=== PATIENT | male | born 1990 | race African-American/Black ===

== ENCOUNTER 2016-08-29 04:20 | Outpatient (CLI) | payer MEDICAID | END 2016-08-29 04:21 | disposition critical access hospital (66) | LOC: EMS 04:20 | PROVIDERS: ATTEND Surgery | DX: R56.9 Unspecified convulsions (principal) | CPT/HCPCS: A0425; A0429 ==

== ENCOUNTER 2016-08-29 04:36 | Emergency (ER) | payer MEDICAID ==
--- NOTE | 2016-08-29 04:49 | ED Physician Documentation ---
PD HPI SEIZURE - Stated complaint Stated Complaint: SEIZURE - Chief complaint Chief Complaint: Neuro - History obtained from History obtained from: Patient, Family (his mother), EMS - History of Present Illness Timing - onset: How many minutes ago (30) Witnessed: Witnessed Number of seizures: Single, Lasted - seconds (about 30-45, per mom) Description of seizure activity: Generalized Injury during seizure: Other (small laceration left lower lip) Associated symptoms: No: Headache, Chest pain, Nausea / vomiting History of seizures: No: First seizure (he has had 2 prior seizures, about a year apart, without prior testing nor medications. He takes Adderall for ADHD and has been on same med/dose for awhile. No new medications, recent illness, drug use, dehydration, nor alcohol use.) Contributing factors: No: Changed meds, Head injury, Fever, Sleep deprivation Similar symptoms before: No diagnosis Recently seen: Not recently seen Review of Systems Constitutional: denies: Fever, Chills Nose: denies: Rhinorrhea / runny nose, Congestion Throat: denies: Sore throat Cardiac: denies: Chest pain / pressure Respiratory: denies: Cough GI: denies: Abdominal Pain, Nausea, Vomiting, Diarrhea Skin: denies: Rash, Lesions Musculoskeletal: denies: Neck pain, Back pain Neurologic: denies: Focal weakness, Numbness, Altered mental status, Headache, Head injury Psychiatric: reports: Depressed. denies: Suicidal Endocrine: denies: Weight loss Immunocompromised: denies: Immunocompromised PD PAST MEDICAL HISTORY - Past Medical History Past Medical History: Yes Cardiovascular: None Respiratory: None Neuro: None, Seizure disorder (2 prior seizures over past 1 1/2 - 2 years, without specific diagnosis nor medications. ) Endocrine/Autoimmune: None Psych: ADD/ADHD - Past Surgical History Past Surgical History: Yes HEENT: Tonsil/Adenoidectomy - Present Medications Home Medications: Ambulatory Orders Medication Instructions Recorded Confirmed Dextroamphetamine/Amphetamine 10 mg PO DAILY 08/29/16 08/29/16 [Adderall 10 mg Tablet] - Allergies Allergies/Adverse Reactions: Allergies Allergy/AdvReac Type Severity Reaction Status Date / Time No Known Drug Allergies Allergy Verified 08/29/16 04:40 - Social History Does the pt smoke?: No Smoking Status: Never smoker Does the pt drink ETOH?: No Does the pt have substance abuse?: No - Immunizations Immunizations are current?: No Immunizations: TDAP >10years/unknown - POLST Patient has POLST: No PD ED PE NORMAL - Vitals Vital signs reviewed: Yes - General General: Alert and oriented X 3, No acute distress, Well developed/nourished - HEENT HEENT: PERRL, Ears normal, Pharynx benign, Other (left lower lip with small laceration. Tongue without lesions. Chin with mild swelling. No scalp tenderness. 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, No motor deficit, No sensory deficit, Normal speech, Other - Psych Psych: Normal mood, Normal affect Results - Vitals Vitals: Vital Signs - 24 hr 08/29/16 08/29/16 08/29/16 04:39 04:58 05:52 Temperature 36.5 C Heart Rate 105 H 99 101 H Respiratory 18 12 12 Rate Blood Pressure 130/62 109/61 116/62 O2 Saturation 96 98 100 08/29/16 05:53 Temperature 36.9 C Heart Rate 101 H Respiratory 15 Rate Blood Pressure 111/62 O2 Saturation 100 Oxygen O2 Source Room air - Labs Labs: Laboratory Tests 08/29/16 08/29/16 08/29/16 04:52 04:52 04:52 WBC 10.0 RBC 4.81 Hgb 13.1 L Hct 39.3 L MCV 81.7 MCH 27.1 MCHC 33.2 RDW 14.7 Plt Count 229 MPV 9.1 Neut # 6.3 Lymph # 2.5 Emery # 0.8 Eos # 0.3 Baso # 0.2 H Absolute Nucleated RBC 0.00 Nucleated RBCs 0.0 Sodium 140 Potassium 4.1 Chloride 104 Carbon Dioxide 25 Anion Gap 11.0 BUN 18 Creatinine 1.1 Estimated GFR (MDRD) 100 Glucose 102 H Calcium 9.2 Magnesium 1.9 Total Bilirubin < 0.2 L AST 25 ALT 25 Alkaline Phosphatase 69 Total Protein 7.3 Albumin 4.2 Globulin 3.1 Albumin/Globulin Ratio 1.4 Lipase 19 L TSH 1.41 Urine Color Urine Clarity Urine pH Ur Specific [place] Urine Protein Urine Glucose (UA) Urine Ketones Urine Occult Blood Urine Nitrite Urine Bilirubin Urine Urobilinogen Ur Leukocyte Esterase Urine RBC Urine WBC Ur Squamous Epith Cells Urine Bacteria Urine Casts Urine Mucus Ur Microscopic Review Urine Culture Comments Urine Opiates Screen Ur Oxycodone Screen Urine Methadone Screen Ur Propoxyphene Screen Ur Barbiturates Screen Ur Tricyclics Screen Ur Phencyclidine Scrn Ur Amphetamine Screen U Methamphetamines Scrn U Benzodiazepines Scrn Urine Cocaine Screen U Cannabinoids Screen 08/29/16 05:08 WBC RBC Hgb Hct MCV MCH MCHC RDW Plt Count MPV Neut # Lymph # Emery # Eos # Baso # Absolute Nucleated RBC Nucleated RBCs Sodium Potassium Chloride Carbon Dioxide Anion Gap BUN Creatinine Estimated GFR (MDRD) Glucose Calcium Magnesium Total Bilirubin AST ALT Alkaline Phosphatase Total Protein Albumin Globulin Albumin/Globulin Ratio Lipase TSH Urine Color YELLOW Urine Clarity CLEAR Urine pH 6.0 Ur Specific [place] >=1.030 H Urine Protein 100 H Urine Glucose (UA) NEGATIVE Urine Ketones NEGATIVE Urine Occult Blood TRACE-LYSE Urine Nitrite NEGATIVE Urine Bilirubin NEGATIVE Urine Urobilinogen 0.2 (NORMAL) Ur Leukocyte Esterase NEGATIVE Urine RBC 0-5 Urine WBC 0-3 Ur Squamous Epith Cells NONE SEEN Urine Bacteria None Seen Urine Casts 3-5 Hyaline Casts Urine Mucus Few Strands Ur Microscopic Review INDICATED Urine Culture Comments NOT INDICATED Urine Opiates Screen NEGATIVE Ur Oxycodone Screen NEGATIVE Urine Methadone Screen NEGATIVE Ur Propoxyphene Screen NEGATIVE Ur Barbiturates Screen NEGATIVE Ur Tricyclics Screen NEGATIVE Ur Phencyclidine Scrn NEGATIVE Ur Amphetamine Screen POSITIVE H U Methamphetamines Scrn NEGATIVE U Benzodiazepines Scrn NEGATIVE Urine Cocaine Screen NEGATIVE U Cannabinoids Screen NEGATIVE PD MEDICAL DECISION MAKING - ED course Complexity details: reviewed results, considered differential, d/w patient Departure - Departure Disposition: 01 Home, Self Care Clinical Impression: Seizures, generalized convulsive Condition: Stable Record reviewed to determine appropriate education?: Yes Instructions: ED Seizure New Onset Unk Cause Follow-Up: [facility] [Provider Group] Comments: Drink lots of fluids. Tylenol every 4 hours if needed for pains. Follow up with yur PCP in Clinic today as planned. Return if recurrent seizures in the next few days. Your primary care provider with presumedly set you up with outpatient tests of EEG and possibly MRI, and likely referral to Neurologist. Whether to start anti-seizure medications would be a discussion over how often they occur versus potential side-effects and problem of daily medications.
[2016-08-29 05:08] LABS: BASOPHILS # (AUTO) 0.2 10^3/uL (0.0-0.1); BASOPHILS % (AUTO) 1.5 %; EOSINOPHILS # (AUTO) 0.3 10^3/uL (0.0-0.7); EOSINOPHILS % (AUTO) 2.5 %; HCT - HEMATOCRIT 39.3 % (42.0-52.0); HGB - HEMOGLOBIN 13.1 g/dL (14.0-18.0); LYMPHOCYTES # (AUTO) 2.5 10^3/uL (1.5-3.5); LYMPHOCYTES % (AUTO) 24.8 %; MEAN CORPUSCULAR HEMOGLOBIN 27.1 pg (27.0-31.0); MEAN CORPUSCULAR HGB CONC 33.2 g/dL (32.0-36.0); MEAN CORPUSCULAR VOLUME 81.7 fL (80.0-94.0); MEAN PLATELET VOLUME 9.1 fL (7.4-11.4); MONOCYTES # (AUTO) 0.8 10^3/uL (0.0-1.0); MONOCYTES % (AUTO) 8.2 %; NEUTROPHILS # (AUTO) 6.3 10^3/uL (1.5-6.6); RED BLOOD COUNT 4.81 10^6/uL (4.70-6.10); RED CELL DISTRIBUTION WIDTH 14.7 % (12.0-15.0)
[2016-08-29 05:18] LABS: ALBUMIN/GLOBULIN RATIO 1.4 (1.0-2.2); BILIRUBIN,TOTAL < 0.2 mg/dL (0.2-1.0); BUN - BLOOD UREA NITROGEN 18 mg/dL (6-20); CALCIUM 9.2 mg/dL (8.5-10.3); CARBON DIOXIDE - CO2 25 mmol/L (21-32); CHLORIDE 104 mmol/L (101-111); CREATININE 1.1 mg/dL (0.6-1.2); GFR - MDRD 100 (>89); GLUCOSE 102 mg/dL (70-100); LIPASE 19 U/L (22-51); MAGNESIUM 1.9 mg/dL (1.7-2.8); POTASSIUM 4.1 mmol/L (3.5-5.0); SODIUM 140 mmol/L (135-145); TOTAL PROTEIN 7.3 g/dL (6.7-8.2)
[2016-08-29 05:24] LABS: BILIRUBIN,URINE NEGATIVE (NEGATIVE)
[2016-08-29 05:25] LABS: UA w/ MICROSCOPIC CHARGE YES
[2016-08-29 05:32] LABS: UR CULTURE IF IND NOT INDICATED; WBC,URINE 0-3 /HPF (0-3)
[2016-08-29 05:55] VITALS: BP 111/62
== END 2016-08-29 06:07 | disposition home or self-care (01) ==
LOC: EDUNIT# → ED 04:36
DX: R56.9 Unspecified convulsions (principal)
CPT/HCPCS: 36415; 80053; 80306; 81001; 81003; 83690; 83735; 84443; 85025; 87086; 99283; 99284

== ENCOUNTER 2021-06-29 10:19 | Outpatient (CLI) | payer BC, MEDICAID ==
--- NOTE | 2021-06-29 11:45 | XRAY Report ---
PROCEDURE: Thoracic Spine 2 View INDICATIONS: ACUTE THORACIC BACK PAIN TECHNIQUE: 2 views of the thoracic spine were acquired. COMPARISON: None. FINDINGS: Bones: No fractures or dislocations. No suspicious bony lesions. 12 pairs of ribs are noted, and a ppear intact where visualized. Convex right thoracolumbar scoliosis present. Soft tissues: No paravertebral stripe thickening. IMPRESSION: Mild thoracolumbar dextroscoliosis Reviewed by: Vin Light MD on 06/29/2021 10:43 AM KHUSHI Approved by: Vin Light MD on 06/29/2021 10:43 AM KHUSHI Station ID: [id number]
== END 2021-06-29 23:59 | disposition home or self-care (01) ==
LOC: DI.N 10:19
PROVIDERS: ATTEND Nurse Practitioner
DX: M54.6 Pain in thoracic spine (principal); M41.84 Other forms of scoliosis, thoracic region

== ENCOUNTER 2021-08-07 15:49 | Outpatient (CLI) | payer BC, MEDICAID ==
[2021-08-08 05:29] LABS: HCV AB 0.2 s/co ratio (0.0-0.9); HIV SCREEN 4TH GENERATION Non Reactive (Non Reactive); HSV 2 IGG TYPE SPEC <0.91 index (0.00-0.90)
[2021-08-08 08:10] LABS: RPR Non Reactive (Non Reactive)
[2021-08-08 19:08] LABS: HSV IGM I/II COMBINATION <0.91 Ratio (0.00-0.90)
== END 2021-08-07 15:50 | disposition home or self-care (01) ==
LOC: LAB.N 15:49
PROVIDERS: ATTEND Physician Assistant
DX: R21 Rash and other nonspecific skin eruption (principal)
CPT/HCPCS: 36415; 86592; 86694; 86695; 86696; 86803; 87389

== ENCOUNTER 2023-02-04 16:17 | Emergency (ER) | payer OTHER, BC ==
[2023-02-04 16:28] VITALS: BP 150/70; O2SAT 99
[2023-02-04] MEDS ORDERED: lidocaine 1% 20 ML MDV SUBQ ONE (16:38)
--- NOTE | 2023-02-04 16:55 | ED Physician Documentation ---
History of Present Illness - Stated complaint Stated Complaint: FALL,LIP LAC - Chief complaint Chief Complaint: Trauma Hd/Nk - Additonal information Additional information: 32-year-old male presents to the emergency department for evaluation of a right upper lip laceration. He was at work slipped on a greasy floor falling forward. His lower canine tooth impacted the inner mucosa of the upper lip creating a puncture wound. He went to [facility] walk-in clinic where his tetanus was updated but he was referred to the ER for closure. This is a labor and industries related injury. [id number] Review of Systems Throat: reports: Other (lip laceration) PD PAST MEDICAL HISTORY - Past Medical History Past Medical History: Yes Cardiovascular: None Respiratory: None Endocrine/Autoimmune: None Psych: ADD/ADHD - Past Surgical History Past Surgical History: Yes HEENT: Tonsil/Adenoidectomy - Present Medications Home Medications: Ambulatory Orders Medication Instructions Recorded Confirmed Dextroamphetamine/Amphetamine 10 mg PO DAILY 08/29/16 08/29/16 [Adderall 10 mg Tablet] Acetaminophen [Tylenol] 500 mg PO Q4-6H #20 tablet 02/04/23 Ibuprofen [Motrin] 600 mg PO Q6H PRN #20 tab 02/04/23 - Allergies Allergies/Adverse Reactions: Allergies Allergy/AdvReac Type Severity Reaction Status Date / Time No Known Drug Allergies Allergy Verified 02/04/23 16:22 - Social History Does the pt smoke?: No Smoking Status: Never smoker Does the pt drink ETOH?: No Does the pt have substance abuse?: No - Immunizations Immunizations are current?: Yes Immunizations: TDAP >10years/unknown - POLST Patient has POLST: No PD ED PE NORMAL - General General: Alert and oriented X 3, No acute distress, Well developed/nourished - HEENT HEENT: Other (Bruising of the upper gumline without avulsion or loosening of the teeth. No malocclusion. No tenderness of the jaw or TMJ tenderness. He has a 1 cm puncture wound to right upper lip inner mucosa.) - Neck Neck: Supple, no meningeal sign - Cardiac Cardiac: RRR, No murmur - Respiratory Respiratory: No respiratory distress Results - Vitals Vitals: Vital Signs - 24 hr 02/04/23 16:22 Temperature 36.5 C Heart Rate 74 Respiratory 16 Rate Blood Pressure 150/70 H O2 Saturation 99 Oxygen O2 Source Room air Procedures - Laceration (location) right upper lip Length in cm: 1 Wound type: Irregular, Into subcut fat Anesthesia: Lidocaine 1% Wound preparation: Irrigated copiously NS Skin layer closure: Interrupted, Size #-0 - enter number (3), Sutures - enter # (1), Other (vicryl) Other: Tetanus UTD PD Medical Decision Making - ED course Complexity details: reviewed results, d/w patient, d/w family ED course: 32-year-old autistic male presents here for a puncture laceration to his right upper lip sustained after a fall at work. The wound itself is a gaping puncture wound. Tetanus was updated in outside clinic. I discussed with the patient sister and the patient's mom the risk and benefits of closure. Because of the risk of closure as it is a puncture wound we elected to place 1 Vicryl suture just to approximate the wound but leave open the edges should there be any concerns for infection. Patient is advised to soft diet and to rinse his mouth with warm salt water after eating. The usual emergent return precautions were discussed for worsening symptoms. Clinically there was nothing to suggest a tooth avulsion. He does have a superficial gum abrasion above his incisors. No malocclusion. No jaw pain [employer] [id number]. This form was filled out by the walk-in clinic. In my medical opinion the patient can return to work. Departure - Departure Disposition: 01 Home, Self Care Clinical Impression: Lip laceration Qualifiers: Encounter type: initial encounter Qualified Code(s): S01.511A - Laceration without foreign body of lip, initial encounter Condition: Stable Record reviewed to determine appropriate education?: Yes Prescriptions: Ibuprofen [Motrin] 600 mg PO Q6H PRN #20 tab PRN Reason: Pain Acetaminophen [Tylenol] 500 mg PO Q4-6H #20 tablet Comments: The puncture wound/laceration to his upper inner lip was closed with 1 single Vicryl suture. This is an absorbable suture. Because this is a puncture/laceration there is a higher risk of infection. Over the next several days I recommend that he eat soft foods such as mashed potatoes, yogurt, ice cream or even Posta. Crunching hard foods may be uncomfortable. In general after eating I recommend that he rinse and gargle with warm salt water. He should be seen by a dentist to follow-up on the gum abrasion but there is no evidence of tooth fracture or avulsion today. Return to the ER if you have any concerns of infection such as redness or swelling of the lip, increased pain or milky drainage. In general I would recommend that he take Tylenol or ibuprofen for discomfort. I have sent these prescriptions to the [facility] in [place].
== END 2023-02-04 17:22 | disposition home or self-care (01) ==
LOC: ED 16:17
DX: S01.511A Laceration without foreign body of lip, initial encounter (principal); W01.0XXA Fall on same level from slipping, tripping and stumbling without subsequent striking against object, initial encounter; Y99.0 Civilian activity done for income or pay; Z79.899 Other long term (current) drug therapy
CPT/HCPCS: 12011; 99283